=== PATIENT | male | born 1945 | race Asian ===

== ENCOUNTER 2016-07-29 11:01 | Inpatient (IN) | payer OTHER ==
[2016-07-29] VITALS (211 sets, daily range): BP systolic 142–186; BP diastolic 86–97; PULSE 95–112; TEMP 97.8–98.6; O2SAT 89–97
[~2016-07-29] VITALS: Ht 165.1 cm; Wt 56.8 kg
[2016-07-29 12:29] LABS: BASO % 0.6 % (0.0-2.0); EOS # 0.1 (0.0-0.7); EOS % 1.5 % (0-4.0); GRAN # 4.8 (1.4-6.5); GRAN % 73.9 % (42.2-75.2); HEMATOCRIT 42.7 % (42.0-52.0); HEMOGLOBIN 13.7 g/dl (13.5-18.0); LYMPH # 0.8 (1.2-3.4); LYMPH % 12.9 % (20.0-51.0); MEAN CELL VOLUME 88 fl (80.0-100.0); MEAN CORPUSCULAR HEMOGLOBIN 28 pg (27.0-31.0); MEAN CORPUSCULAR HGB CONC 32 g/dl (33.0-37.0); MEAN PLATELET VOLUME 8.9 fl (7.4-10.4); MONO # 0.7 (0.1-0.6); MONO % 10.6 % (1.7-9.3); PLATELET COUNT 318 K/mm3 (130-400); RED BLOOD COUNT 4.88 M/mm3 (4.20-5.60); REDCELL DISTRIBUTION WIDTH-CV 12.3 % (11.5-14.5); WHITE BLOOD COUNT 6.5 K/mm3 (4.8-10.8)
[2016-07-29 12:30] LABS: ADJUSTED CALCIUM 9.2 mg/dL (8.4-10.2); ALBUMIN 4.1 gm/dL (3.5-5.0); BILIRUBIN,TOTAL 0.7 mg/dL (0.0-1.0); C-REACTIVE PROTEIN 6.1 mg/dL (0.0-0.9); CALCIUM 9.3 mg/dL (8.4-10.2); CREATININE, serum 1.02 mg/dL (0.66-1.25); POTASSIUM 4.2 mmol/L (3.4-5.0); TOTAL PROTEIN 7.6 gm/dL (6.4-8.2)
[2016-07-29 12:44] LABS: ERYTHROCYTE SEDIMENTATION RATE 29 mm/hr (0-30)
[2016-07-29 18:48] LABS: HIV 1/2 Antibodies Non-Reactive; HIV-1p24 Antigen Non-Reactive
[2016-07-30] VITALS (935 sets, daily range): BP systolic 98–135; BP diastolic 71–82; PULSE 96–113; TEMP 97.3–100.7; O2SAT 88–98
[2016-07-30 05:15] LABS: BASO % 0.5 % (0.0-2.0); EOS # 0.1 (0.0-0.7); EOS % 1.2 % (0-4.0); GRAN # 4.3 (1.4-6.5); GRAN % 73.3 % (42.2-75.2); HEMATOCRIT 40.7 % (42.0-52.0); HEMOGLOBIN 12.9 g/dl (13.5-18.0); LYMPH # 0.7 (1.2-3.4); LYMPH % 12.3 % (20.0-51.0); MEAN CELL VOLUME 87 fl (80.0-100.0); MEAN CORPUSCULAR HEMOGLOBIN 28 pg (27.0-31.0); MEAN CORPUSCULAR HGB CONC 32 g/dl (33.0-37.0); MEAN PLATELET VOLUME 8.8 fl (7.4-10.4); MONO # 0.7 (0.1-0.6); MONO % 12.4 % (1.7-9.3); PLATELET COUNT 286 K/mm3 (130-400); RED BLOOD COUNT 4.66 M/mm3 (4.20-5.60); REDCELL DISTRIBUTION WIDTH-CV 12.4 % (11.5-14.5); WHITE BLOOD COUNT 5.9 K/mm3 (4.8-10.8)
[2016-07-30 05:22] LABS: CALCIUM 8.8 mg/dL (8.4-10.2); CREATININE, serum 0.87 mg/dL (0.66-1.25); POTASSIUM 4.2 mmol/L (3.4-5.0)
[2016-07-31] VITALS (468 sets, daily range): BP systolic 124–149; BP diastolic 48–83; PULSE 77–108; TEMP 97.5–98.8; O2SAT 87–98
[2016-07-31 05:35] LABS: MEAN CELL VOLUME 87 fl (80.0-100.0); MEAN CORPUSCULAR HGB CONC 33 g/dl (33.0-37.0); MEAN PLATELET VOLUME 9.1 fl (7.4-10.4); PLATELET COUNT 242 K/mm3 (130-400); RED BLOOD COUNT 4.17 M/mm3 (4.20-5.60); REDCELL DISTRIBUTION WIDTH-CV 12.4 % (11.5-14.5); WHITE BLOOD COUNT 3.9 K/mm3 (4.8-10.8)
[2016-07-31 05:46] LABS: ADD PATHOLOGY DIFF REVIEW NO; ADJUSTED CALCIUM 8.9 mg/dL (8.4-10.2); ALBUMIN 3.1 gm/dL (3.5-5.0); BILIRUBIN,TOTAL 0.5 mg/dL (0.0-1.0); CALCIUM 8.2 mg/dL (8.4-10.2); CREATININE, serum 1.02 mg/dL (0.66-1.25); HEMATOCRIT 36.1 % (42.0-52.0); HEMOGLOBIN 11.8 g/dl (13.5-18.0); MEAN CORPUSCULAR HEMOGLOBIN 28 pg (27.0-31.0); POTASSIUM 3.9 mmol/L (3.4-5.0); TOTAL PROTEIN 5.8 gm/dL (6.4-8.2)
[2016-07-31 05:56] LABS: BAND 36 % (0-10); EOSINOPHIL 3 % (0-4); NEUTROPHILS 22 % (42.0-75.2); PLATELET ESTIMATE NORMAL (NORMAL); TOTAL CELLS COUNTED 100
[2016-08-01 00:16] VITALS: BP 125/64; PULSE 84; TEMP 98.2
[2016-08-01 04:01] VITALS: BP 120/65; PULSE 79; TEMP 97.6
[2016-08-01 08:22] VITALS: BP 119/67; PULSE 94; TEMP 98.5
[2016-08-01 12:45] VITALS: BP 132/70; PULSE 69; TEMP 98.1
[2016-08-01 15:37] VITALS: BP 135/68; PULSE 85; TEMP 99
[2016-08-01 20:28] VITALS: BP 143/68; PULSE 84; TEMP 98
[2016-08-02 00:36] VITALS: BP 156/78; PULSE 78; TEMP 97.4
[2016-08-02 04:45] VITALS: BP 137/76; PULSE 77; TEMP 98.1
[2016-08-02 08:57] VITALS: BP 150/75; PULSE 95; TEMP 98.1
[2016-08-02 13:37] VITALS: BP 126/66; PULSE 75; TEMP 97.6
[2016-08-02 16:24] VITALS: BP 149/67; PULSE 87; TEMP 98.1
[2016-08-02 23:56] VITALS: BP 152/70; PULSE 75; TEMP 98.5
[2016-08-03 04:28] VITALS: BP 139/79; PULSE 86; TEMP 97.8
[2016-08-03 07:25] VITALS: BP 154/89; PULSE 93; TEMP 97.9
[2016-08-03 12:20] VITALS: BP 124/69; PULSE 78; TEMP 97.9
[2016-08-03] MEDS ORDERED: DOXYCYCLINE HY100 MG PO (14:19)
[2016-08-03] MEDS ORDERED: VALTREX1 GM PO (14:20)
[2016-08-03] MEDS ORDERED: NEOSPORIN1 OIN TP (14:20)
[2016-08-03] MEDS ORDERED: LOPRESSOR 225 MG/TAB PO (14:21)
[2016-08-03] MEDS ORDERED: NEURONTIN100 MG/CAP PO ×2 (14:21→16:25)
[2016-08-03] MEDS ORDERED: PERCOCET 325 MG1 TA2 PO (14:21)
== END 2016-08-03 17:26 | disposition home or self-care (01) | DRG 603 ==
LOC: COL.ER 11:01 → ICU 14:22 → MEDICAL 14:22
PROVIDERS: Emergency Medicine; Internal Medicine; Nurse Practitioner Family
PROC: 02HV33Z Insertion of Infusion Device into Superior Vena Cava, Percutaneous Approach (ICD-10-PCS; principal; 2016-07-29)
DX: L03.213 Periorbital cellulitis (principal); B02.30 Zoster ocular disease, unspecified; Z87.891 Personal history of nicotine dependence; I10 Essential (primary) hypertension
CPT/HCPCS: 99223-AI; 99232-AI; 99239; C1751; J0133; J0696; J1644; J1650; J2270; J2543; J3370; J7030; J7050; Q9967

== ENCOUNTER 2016-08-19 12:45 | Emergency (ER) | payer OTHER ==
[~2016-08-19] VITALS: Ht 170.2 cm; Wt 63.6 kg
[~2016-08-19 12:45] MED LIST: DOXYCYCLINE HY100 MG PO; LOPRESSOR 225 MG/TAB PO; NEOSPORIN1 OIN TP; NEURONTIN100 MG/CAP PO; PERCOCET 325 MG1 TA2 PO; VALTREX1 GM PO
[2016-08-19 12:54] VITALS: TEMP 97.6
[2016-08-19] MEDS ORDERED: NEURONTIN100 MG/CAP PO (13:44)
[2016-08-19] MEDS ORDERED: PERCOCET 325 MG1 TA2 PO (14:26)
[2016-08-19 14:50] VITALS: BP 149/80; PULSE 62
== END 2016-08-19 14:50 | disposition home or self-care (01) ==
LOC: COL.ER 12:45
DX: B02.29 Other postherpetic nervous system involvement (principal); B02.9 Zoster without complications
CPT/HCPCS: J1885

== ENCOUNTER 2016-09-19 12:05 | Emergency (ER) | payer OTHER ==
[2016-09-19 12:09] VITALS: BP 112/74; PULSE 104; TEMP 97.6
[2016-09-19 13:15] LABS: BASO % 0.3 % (0.0-2.0); EOS % 0.4 % (0-4.0); GRAN # 8.2 (1.4-6.5); GRAN % 77.8 % (42.2-75.2); HEMATOCRIT 39.3 % (42.0-52.0); HEMOGLOBIN 12.8 g/dl (13.5-18.0); LYMPH # 1.1 (1.2-3.4); LYMPH % 10.4 % (20.0-51.0); MEAN CELL VOLUME 86 fl (80.0-100.0); MEAN CORPUSCULAR HEMOGLOBIN 28 pg (27.0-31.0); MEAN CORPUSCULAR HGB CONC 33 g/dl (33.0-37.0); MEAN PLATELET VOLUME 8.8 fl (7.4-10.4); MONO # 1.1 (0.1-0.6); MONO % 10.7 % (1.7-9.3); PLATELET COUNT 318 K/mm3 (130-400); RED BLOOD COUNT 4.59 M/mm3 (4.20-5.60); REDCELL DISTRIBUTION WIDTH-CV 13.7 % (11.5-14.5); WHITE BLOOD COUNT 10.5 K/mm3 (4.8-10.8)
[2016-09-19 13:28] LABS: ADJUSTED CALCIUM 9.3 mg/dL (8.4-10.2); ALBUMIN 3.4 gm/dL (3.5-5.0); BILIRUBIN,TOTAL 1.6 mg/dL (0.0-1.0); CALCIUM 8.8 mg/dL (8.4-10.2); CREATININE, serum 0.9 mg/dL (0.66-1.25); POTASSIUM 4.4 mmol/L (3.4-5.0); TOTAL PROTEIN 6.7 gm/dL (6.4-8.2)
[2016-09-19] MEDS ORDERED: INDOCIN 25MG CA25 MG PO (14:02)
[2016-09-19 14:03] LABS: URIC ACID 7.9 mg/dL (3.5-8.5)
== END 2016-09-19 14:27 | disposition home or self-care (01) ==
LOC: COL.ER 12:05
PROVIDERS: Family Medicine
DX: M10.072 Idiopathic gout, left ankle and foot (principal); M10.071 Idiopathic gout, right ankle and foot
CPT/HCPCS: J1885